=== PATIENT | male | born 1995 | race Caucasian/White ===

== ENCOUNTER 2019-02-16 05:21 | Emergency (ER) | payer MEDICAID, OTHER ==
[~2019-02-16] VITALS: Ht 165.1 cm; Wt 57.0 kg
[~2019-02-16 05:21] MED LIST: IBUP-1542 PO; LORA-441 PO
[2019-02-16 05:31] VITALS: Ht 165.1 cm; Wt 57.0 kg
[2019-02-16] MEDS ORDERED: KETOROLAC 30 MG INJ IM STA (06:33)
[2019-02-16] MEDS ORDERED: LORAZEPAM 0.5 MG TAB PO ONE (07:00)
[2019-02-16 08:03] VITALS: BP 122/66; PULSE 92; RESP 20
== END 2019-02-16 08:04 | disposition home or self-care (01) ==
LOC: E/R 05:21
DX: R07.9 Chest pain, unspecified (principal); F41.9 Anxiety disorder, unspecified; T50.901A Poisoning by unspecified drugs, medicaments and biological substances, accidental (unintentional), initial encounter
CPT/HCPCS: 36415; 84484; 93005; 96372; J1885; Z7502; Z7610

== ENCOUNTER 2019-02-17 11:17 | Emergency (ER) | payer MEDICAID ==
[~2019-02-17] VITALS: Ht 170.2 cm; Wt 61.4 kg
[2019-02-17 11:38] VITALS: Ht 170.2 cm; Wt 61.4 kg
[2019-02-17] MEDS ORDERED: METOCLOPRAMIDE 10 MG INJ IV STA (12:00)
[2019-02-17] MEDS ORDERED: SUMATRIPTAN 25 MG TAB PO STA (12:00)
[2019-02-17] MEDS ORDERED: SOD CHLORIDE 0.9% 1,000 ML IV STA (12:00)
[2019-02-17] MEDS ORDERED: DIPHENHYDRAMINE 50 MG INJ IV STA (12:00)
[2019-02-17] MEDS ORDERED: KETOROLAC 30 MG INJ IV STA (12:00)
[2019-02-17] MEDS ORDERED: LORAZEPAM 2 MG INJ IV ONE (12:30)
[2019-02-17 13:19] VITALS: BP 132/86; PULSE 76; RESP 17
== END 2019-02-17 13:22 | disposition home or self-care (01) ==
LOC: FTE 11:17
DX: F41.9 Anxiety disorder, unspecified (principal); G44.209 Tension-type headache, unspecified, not intractable; R00.2 Palpitations
CPT/HCPCS: 93005; 96361; 96374; 96375; J1885; J2060; J7030; Z7502; Z7610; J1200; J2765